=== PATIENT | male | born 2000 | race Two or more races ===

== ENCOUNTER 2019-10-07 10:50 | Emergency (ER) | payer OTHER ==
[2019-10-07 11:15] VITALS: BP 118/65; PULSE 74; TEMP 98.3; BMI 21.4
--- NOTE | 2019-10-07 11:57 | PDOC ---
History of Present Illness - General Chief Complaint: Injury Stated Complaint: FALL Time Seen by Provider: 10/07/19 11:39 History Source: Patient Exam Limitations: Clinical Condition - History of Present Illness Initial Comments: 10/07/19 11:59 Patient with no significant past medical history presented with complaint of intermittent headache that only comes on the morning when he wakes after slip and fall 3 days ago playing basketball where he hit right side of head on a basketball court. Patient denies pain now, nausea, vomiting, dizziness, headaches, blurred vision or change in vision. Patient report headache only comes on the morning and resolves. Patient has not taken anything for symptoms Occurred: reports: other (3 days ago) Severity: reports: mild Pain Location: reports: head (right side head contusion) Method of Injury: Yes: fall Modifying Factors: improves with: None Loss of Consciousness: no loss of consciousness Associated Symptoms (Fall): denies symptoms Past History - Past Medical History Allergies/Adverse Reactions: Allergies Allergy/AdvReac Type Severity Reaction Status Date / Time No Known Allergies Allergy Verified 10/07/19 11:15 Home Medications: Ambulatory Orders NK [No Known Home Medication] 10/07/19 COPD: No Disorders: No - Surgical History Cardiac Surgery: No - Immunization History Immunization Up to Date: No - Psycho Social/Smoking Cessation Hx Smoking History: Never smoked Have you smoked in the past 12 months: No Information on smoking cessation initiated: No Hx Alcohol Use: No Drug/Substance Use Hx: No Review of Systems - Review of Systems Able to Perform ROS?: Yes Is the patient limited Turkmen proficient: No Constitutional: No: Malaise, Weakness HEENTM: No: Symptoms Reported, See HPI, Eye Pain, Blurred Vision, Tearing, Recent change in vision, Double Vision, Cataracts, Ear Pain, Ocular Prothesis, Ear Discharge, Nose Pain, Nose Congestion, Tinnitus, Nose Bleeding, Hearing Loss , Throat Pain, Throat Swelling, Mouth Pain, Dental Problems, Difficulty Swallowing, Mouth Swelling, Other Respiratory: No: Symptoms reported, See HPI, Cough, Orthopnea, Shortness of Breath, SOB with Exertion, SOB at Rest, Stridor, Wheezing, Productive cough, Hemoptysis, Other Cardiac (ROS): No: Symptoms Reported, See HPI, Chest Pain, Edema, Irregular Heart Rate, Lightheadedness, Palpitations, Syncope, Chest Tightness, Other ABD/GI: No: Symptoms Reported, Nausea, Vomiting Musculoskeletal: No: Symptoms Reported Integumentary: No: Symptoms Reported, Bruising, Change in Color Neurological: Yes: Symptoms reported, See HPI, Headache (intermittent LIZAMA). No: Numbness, Paresthesia, Pre-Existing Deficit, Seizure, Weakness, Unsteady Gait, Ataxia, Dizziness All Other Systems: Reviewed and Negative *Physical Exam - Vital Signs Last Vital Signs Temp Pulse Resp BP Pulse Ox 98.3 F 74 18 118/65 98 10/07/19 11:11 10/07/19 11:11 10/07/19 11:11 10/07/19 11:11 10/07/19 11:11 - Physical Exam Comments: 10/07/19 11:55 GENERAL: Well developed, well nourished. Awake and alert. No acute distress. HEENT: Normocephalic, atraumatic. PERRLA, EOMI. No conjunctival pallor. Sclera are non- icteric. Moist mucous membranes. Oropharynx is clear. NECK: Supple. Full ROM. PULMONARY: No evidence of respiratory distress. MUSCULOSKELETAL Normal range of motion at all joints. No bony deformities or tenderness. SKIN: Warm and dry. Normal capillary refill. No bruising, swelling or ecchymosis to forehead or scalp. NEUROLOGICAL: Alert, awake, appropriate. Cranial nerves 2-12 intact. No motor deficits in the in face, upper extremities and lower extremities. Normoreflexic in the upper and lower extremities. Normal speech. Gait is normal without ataxia. Normal tandem walking. Normal finger to tip of nose to hand coordination. PSYCHIATRIC: Cooperative. Good eye contact. Appropriate mood and affect. General Appearance: Yes: Nourished, Appropriately Dressed. No: Apparent Distress Medical Decision Making - Medical Decision Making 10/07/19 12:02 Patient with no significant past medical history presented with complaint of intermittent headache that only comes on the morning when he wakes after slip and fall 3 days ago playing basketball where he hit right side of head on a basketball court. Patient denies pain now, nausea, vomiting, dizziness, headaches, blurred vision or change in vision. Patient report headache only comes on the morning and resolves. Patient has not taken anything for symptoms Clinical exam unremarkable with normal neuro exam and no swelling, ecchymosis or swelling to scalp or face. Normal tandem walking. Normal finger to tip of nose to hand coordination. Patient symptoms likely hand contusion. Given normal exam, will hold off on imaging. Patient stable for discharge with strict follow-up instructions and take Tylenol as needed for headache Discharge - Discharge Information Problems reviewed: Yes Clinical Impression/Diagnosis: Head contusion Qualifiers: Encounter type: initial encounter Contusion of head detail: scalp Qualified Code(s): S00.03XA - Contusion of scalp, initial encounter Condition: Stable Disposition: HOME - Admission No - Follow up/Referral Referrals: Paz Pike MD [Primary Care Provider] - - Patient Discharge Instructions Patient Printed Discharge Instructions: DI for Contusion Additional Instructions: Your exam is normal. No concern for intracranial bleeding at this time. Take Tylenol as needed for headache. Come back to emergency room if worsening headache with vomiting and dizziness for reassessment or imaging - Post Discharge Activity
== END 2019-10-07 12:01 | disposition home or self-care (01) ==
LOC: JERFT 10:50
DX: S00.83XA Contusion of other part of head, initial encounter (principal); W18.39XA Other fall on same level, initial encounter; Y93.67 Activity, basketball; Y92.310 Basketball court as the place of occurrence of the external cause; Y99.8 Other external cause status
CPT/HCPCS: 99281-25

== ENCOUNTER 2020-07-13 18:10 | Emergency (ER) | payer OTHER ==
--- NOTE | 2020-07-13 18:33 | PDOC ---
Rapid Medical Evaluation Time Seen by Provider: 07/13/20 18:30 Medical Evaluation: Allergies Allergy/AdvReac Type Severity Reaction Status Date / Time No Known Allergies Allergy Verified 07/13/20 18:30 07/13/20 18:30 Pt presents for evaluation of anxiety since January, worsening today Exam: Denies SI, HI, A/V hallucinations Orders: hydroxyzine Pt to proceed to the ER for further evaluation Discharge Disposition - Diagnosis Anxiety - Referrals - Patient Instructions - Post Discharge Activity
[2020-07-13 18:34] VITALS: BP 146/82; PULSE 123; TEMP 98; BMI 22.8
[2020-07-13] MEDS ORDERED: diazePAM 5 MG TABLET PO ONE (19:11)
[2020-07-13] MEDS ORDERED: diazePAM 5 MG TABLET ONE (19:15)
--- NOTE | 2020-07-13 19:34 | PDOC ---
History of Present Illness - General Chief Complaint: Psychiatric Stated Complaint: ANXIETY Time Seen by Provider: 07/13/20 18:30 - History of Present Illness Initial Comments: 07/13/20 19:31 20-year-old male with a past medical history of anxiety presents for evaluation of exacerbation of symptoms today when he was thinking about a fall he had 3 months ago Past History - Medical History Allergies/Adverse Reactions: Allergies Allergy/AdvReac Type Severity Reaction Status Date / Time No Known Allergies Allergy Verified 07/13/20 18:30 Home Medications: Ambulatory Orders NK [No Known Home Medication] 10/07/19 COPD: No Disorders: No - Surgical History Cardiac Surgery: No - Immunization History Immunization Up to Date: No - Psycho-Social/Smoking History Smoking History: Never smoked Have you smoked in the past 12 months: No - Substance Abuse Hx (Audit-C & DAST Scrn) How often the patient has a drink containing alcohol: Never Score: In Men: 4 or > Positive; In Women: 3 or > Positive: 0 Screen Result (Pos requires Nsg. Audit-10AR): Negative In the last yr the pt used illegal drug/Rx for NonMed reason: No Score: Yes response is considered Positive: 0 Screen Result (Positive result requires Nsg. DAST-10): Negative Review of Systems - Review of Systems Psychiatric: Yes: Anxiety, Other (Denies suicidal or homicidal ideation). No: Depression *Physical Exam - Vital Signs Last Vital Signs Temp Pulse Resp BP Pulse Ox 98.0 F 123 H 20 146/82 100 07/13/20 18:31 07/13/20 18:31 07/13/20 18:31 07/13/20 18:31 07/13/20 18:31 - Physical Exam General Appearance: Yes: Nourished, Appropriately Dressed. No: Apparent Distress HEENT: positive: Symmetrical Neck: positive: Supple Respiratory/Chest: positive: Normal Breath Sounds. negative: Respiratory Distress Musculoskeletal: positive: Normal Inspection Extremity: positive: Normal Inspection Integumentary: positive: Normal Color Neurologic: positive: ring spinner II-XII NML intact, Fully Oriented, Alert ED Treatment Course - Medications Given in the ED: ED Medications Discontinued Medications Generic Name Dose Route Start Last Admin Trade Name Freq PRN Reason Stop Dose Admin Diazepam 5 mg 07/13/20 19:11 07/13/20 19:16 Valium - PO 08/24/20 19:12 5 mg ONCE ONE Administration Medical Decision Making - Medical Decision Making 07/13/20 19:33 Symptoms relieved after Valium. Follow-up with primary care physician. I have reviewed the pathophysiology with the patient. They are in agreement with the treatment plan all questions were answered to their satisfaction. Understanding for follow-up without fail was also conveyed to the patient. Again they are in agreement. 07/13/20 19:34 Patient was in instructed not to drive after Valium administered in the emergency room. He will get a ride from his father. Discharge - Discharge Information Problems reviewed: Yes Clinical Impression/Diagnosis: Anxiety Condition: Stable Disposition: HOME - Admission No - Follow up/Referral Referrals: Mane Pike MD [Primary Care Provider] - - Patient Discharge Instructions Additional Instructions: Return to the emergency room for further issues and without fail follow-up with your primary care physician in 1 to 2 days for further evaluation and treatment options.
== END 2020-07-13 19:39 | disposition home or self-care (01) ==
LOC: JERFT 18:10 → JER 18:10 → JERFT 19:39
DX: F41.9 Anxiety disorder, unspecified (principal)
CPT/HCPCS: 99283-25

== ENCOUNTER 2022-08-23 20:04 | Emergency (ER) | payer OTHER ==
[2022-08-23 20:07] VITALS: BP 122/77; PULSE 79; RESP 18; TEMP 98.2; BMI 20.7
[2022-08-23 21:23] LABS: HEMATOCRIT 46.4 % (35.4-49); HEMOGLOBIN 15.7 GM/dL (11.7-16.9); MCH 30.9 pg (25.7-33.7); MCHC 33.8 g/dl (32.0-35.9); MEAN CELL VOLUME 91.5 fl (80-96); MEAN PLT VOLUME 9.4 fl (7.5-11.1); PLATELET COUNT 179 10^3/uL (134-434); RBC 5.07 M/mm3 (4.00-5.60); RDW 13.1 % (11.9-15.9); WHITE BLOOD COUNT 5.7 K/mm3 (4.0-10.0)
[2022-08-23 21:43] LABS: ALBUMIN 4.5 g/dl (3.4-5.0); BLOOD UREA NITROGEN 10.2 mg/dL (7-18); CALCIUM 9.4 mg/dL (8.5-10.1)
[2022-08-23 21:48] LABS: BILIRUBIN,TOTAL 0.3 mg/dL (0.2-1); TOT PROT 7.4 g/dl (6.4-8.2)
== END 2022-08-23 22:02 | disposition home or self-care (01) ==
LOC: JERFT 20:04
DX: R06.02 Shortness of breath (principal); M25.512 Pain in left shoulder
CPT/HCPCS: 0241U-QW; 36415; 71046-TC-FY; 80053; 85027; 85379; 99284-25

== ENCOUNTER 2023-02-12 01:04 | Emergency (ER) | payer OTHER ==
[2023-02-12 01:13] VITALS: BP 123/87; PULSE 16; RESP 75; TEMP 97.7; BMI 20.7
== END 2023-02-12 01:32 | disposition home or self-care (01) ==
LOC: FER 01:04
DX: R00.2 Palpitations (principal)
CPT/HCPCS: 93005; 93010; 99283-25

== ENCOUNTER 2024-04-06 13:25 | Emergency (ER) | payer OTHER ==
[2024-04-06 13:46] VITALS: BP 115/79; PULSE 92; RESP 20; TEMP 98.3; BMI 22.7
[2024-04-06] MEDS ORDERED: ACETAMINOPHEN 500 MG TABLET (FP) ONE (14:51)
[2024-04-06] MEDS ORDERED: IBUPROFEN 600 MG TABLET (FP) PO ONE (14:51)
[2024-04-06] MEDS ORDERED: DIPHTH,PERTUSS(ACELL),TET 0.5 ML DISP.SYRIN IM ONE (14:51)
[2024-04-06] MEDS: DIPHTH,PERTUSS(ACELL),TET 0.5 ML DISP.SYRIN IM ONE (15:00)
[2024-04-06] MEDS: IBUPROFEN 600 MG TABLET (FP) PO ONE (15:00)
[2024-04-06] MEDS: ACETAMINOPHEN 500 MG TABLET (FP) PO ONE (15:34)
== END 2024-04-06 16:19 | disposition home or self-care (01) ==
LOC: JERFT 13:25
PROC: 0XQPXZZ Repair Left Index Finger, External Approach (ICD-10-PCS; principal; 2024-04-06)
PROC: 3E0234Z Introduction of Serum, Toxoid and Vaccine into Muscle, Percutaneous Approach (ICD-10-PCS; 2024-04-06)
DX: S61.211A Laceration without foreign body of left index finger without damage to nail, initial encounter (principal); S61.213A Laceration without foreign body of left middle finger without damage to nail, initial encounter; W20.8XXA Other cause of strike by thrown, projected or falling object, initial encounter; Z23 Encounter for immunization
CPT/HCPCS: 90715; 99284-25

== ENCOUNTER 2024-04-18 18:14 | Emergency (ER) | payer OTHER ==
[2024-04-18 18:31] VITALS: BP 116/71; PULSE 82; RESP 17; TEMP 97.7; BMI 22.6
== END 2024-04-18 19:42 | disposition home or self-care (01) ==
LOC: JERFT 18:14
DX: Z48.02 Encounter for removal of sutures (principal)
CPT/HCPCS: 99281-25